=== PATIENT | female | born 1995 | race Caucasian/White ===

== ENCOUNTER 2020-11-25 10:48 | Emergency (ER) | payer OTHER ==
[~2020-11-25] VITALS: Ht 160 cm; Wt 65.8 kg
[2020-11-25 11:08] VITALS: Ht 160 cm; Wt 65.8 kg
[2020-11-25 12:02] LABS: BASOPHIL % 0.2 % (0.2-1.3); PLATELET COUNT 312 x10^3mcL (179-408); RED CELL DISTRIBUTION WIDTH 12.5 % (12.3-17.7)
[2020-11-25 12:09] LABS: SODIUM SERUM 140 mmol/L (136-145)
[2020-11-25 12:21] LABS: CARBON DIOXIDE 27.3 mmol/L (21-32); CHLORIDE SERUM 102 mmol/L (98-107); CREATININE SERUM 0.6 mg/dL (0.6-1.0); GFR1 > 60 mL/min; GLUCOSE SERUM 79 mg/dL (74-106); POTASSIUM SERUM 3.7 mmol/L (3.5-5.1)
[2020-11-25 12:24] LABS: ALBUMIN 4.2 g/dL (3.4-5.0); ALKALINE PHOSPHATASE 120 U/L (46-116); ALT/SGPT 153 U/L (14-59); AST/SGOT 71 U/L (15-37); BILIRUBIN TOTAL 0.5 mg/dL (0.20-1.00); LIPASE 94 IU/L (73-393)
[2020-11-25 12:25] LABS: TOTAL PROTEIN, SERUM 8.4 g/dL (6.4-8.2)
[2020-11-25 12:27] LABS: UA SPECIFIC GRAVITY >=1.030 (1.005-1.035); microscopic required? YES; urine erythrocyte TRACE (NEGATIVE)
[2020-11-25] MEDS ORDERED: PEPCID AC20 M2 PO (13:07)
[2020-11-25] MEDS ORDERED: CEPHALEXIN500 MG PO (13:07)
[2020-11-25] MEDS ORDERED: ZOF4 PO (13:07)
[2020-11-25] MEDS ORDERED: ULTRAM50 MG PO (13:07)
[2020-11-25 14:13] VITALS: BP 105/65
== END 2020-11-25 14:13 | disposition home or self-care (01) ==
LOC: ED 10:48
PROVIDERS: Emergency Medicine
DX: N10 Acute pyelonephritis (principal)
CPT/HCPCS: J0696; J1885; J2405